=== PATIENT | female | born 1965 | race Caucasian/White ===

== ENCOUNTER 2017-01-15 03:59 | Observation (INO) | payer MEDICAID, OTHER ==
[~2017-01-15] VITALS: Ht 162.6 cm; Wt 56.2 kg
[2017-01-15] MEDS ORDERED: SODIUM CHLORIDE 0.9% 1,000 ML IV ONE (08:08)
[2017-01-15] MEDS ORDERED: ALPRAZolam 0.5 MG TAB PO ONE (08:15)
[2017-01-15] MEDS ORDERED: OLANZapine 5 MG TAB PO ONE (08:15)
[2017-01-15 08:25] LABS: Urine Bilirubin Negative (Negative); Urine Blood Negative /uL (Negative); Urine Color Yellow (Yellow); Urine Glucose Normal (Normal); Urine Mucus FEW (None Seen); Urine Nitrite Negative (Negative); Urine RBC 1 /hpf (0 - 4); Urine Squamous Epithelial Cell FEW /hpf (<5); Urine Urobilinogen Normal (Negative)
[2017-01-15 08:28] LABS: Urine Ketone 2+ (Negative)
[2017-01-15 09:17] LABS: Basophils # (auto) 0 uL; Basophils % (auto) 0.3 % (0.0-2.0); Eosinophils # (auto) 0 uL; Eosinophils % (auto) 0.1 % (0.0-7.0); Hematocrit 38.5 % (36.0-46.0); Hemoglobin 13.1 g/dL (12.2-16.2); Lymphocytes % (auto) 14.3 % (10.0-50.0); Mean Corpuscular Hemoglobin 31.4 pg (28.0-32.0); Mean Corpuscular Volume 92.3 fL (80.0-100.0); Mean Platelet Volume 7.3 fL (7.4-10.4); Monocytes # (auto) 0.3 uL; Monocytes % (auto) 4.5 % (0.0-12.0); Neutrophils # (auto) 5.9 uL; Neutrophils % (auto) 80.8 % (37.0-80.0); Platelet Count (auto) 358 10^3/uL (140-450); Red Cell Distribution Width 14.1 % (11.6-16.0); White Blood Cell 7.3 10^3/uL (4.4-10.8)
[2017-01-15 09:31] LABS: Albumin 4.1 g/dL (3.4-5.0); BUN/Creatinine Ratio 13.3; Bilirubin, Total 0.5 mg/dL (0.2-1.0); Calcium 9.2 mg/dL (8.5-10.1); Potassium 3.1 mmol/L (3.5-5.1); Total Protein 7.1 g/dL (6.4-8.2)
[2017-01-15 10:00] VITALS: BP 150/101
[2017-01-15] MEDS ORDERED: RISP4TAB53 (10:44)
[2017-01-15] MEDS ORDERED: ESCI20TA51 (10:44)
[2017-01-15] MEDS ORDERED: POTASSIUM CHL 10% (20 MEQ/15ML) ORAL SOLN PO ONE (11:45)
== END 2017-01-15 17:58 | disposition home or self-care (01) | DRG 750 ==
LOC: ER 03:59 → OVERFLOW 08:11 → ER 17:58
PROVIDERS: ADMIT Emergency Medicine; ATTEND Emergency Medicine
DX: F25.0 Schizoaffective disorder, bipolar type (principal); F30.8 Other manic episodes; E87.6 Hypokalemia; F51.05 Insomnia due to other mental disorder; F41.9 Anxiety disorder, unspecified
CPT/HCPCS: 36415; 71020; 80053; 80307; 81001; 83735; 84443; 85025; 96360; 99285; G0378

== ENCOUNTER 2017-01-24 11:49 | Emergency (ER) | payer MEDICAID ==
[~2017-01-24] VITALS: Ht 162.6 cm; Wt 56.2 kg
[~2017-01-24 11:49] MED LIST: ESCI20TA51; RISP4TAB53
[2017-01-24 12:42] LABS: Basophils # (auto) 0 uL; Basophils % (auto) 0.4 % (0.0-2.0); Eosinophils # (auto) 0 uL; Eosinophils % (auto) 0.3 % (0.0-7.0); Hematocrit 38.7 % (36.0-46.0); Hemoglobin 12.9 g/dL (12.2-16.2); Lymphocytes # (auto) 1.1 uL; Mean Corpuscular Hemoglobin 31.2 pg (28.0-32.0); Mean Corpuscular Hgb Conc. 33.4 g/dL (32.0-36.0); Mean Corpuscular Volume 93.3 fL (80.0-100.0); Mean Platelet Volume 7.2 fL (7.4-10.4); Monocytes # (auto) 0.4 uL; Monocytes % (auto) 6.5 % (0.0-12.0); Neutrophils # (auto) 4.3 uL; Neutrophils % (auto) 73.8 % (37.0-80.0); Platelet Count (auto) 356 10^3/uL (140-450); Red Cell Distribution Width 13.9 % (11.6-16.0); White Blood Cell 5.9 10^3/uL (4.4-10.8)
[2017-01-24 13:14] LABS: Albumin 3.7 g/dL (3.4-5.0); Alkaline Phosphatase 51 U/L (45-117); Anion Gap 5 (5-15); Aspartate Aminotransferase 16 U/L (15-37); BUN/Creatinine Ratio 14.5; Bilirubin, Total 0.4 mg/dL (0.2-1.0); Blood Urea Nitrogen 9 mg/dL (7-18); Calcium 8.7 mg/dL (8.5-10.1); Carbon Dioxide 27 mmol/L (21-32); Chloride 107 mmol/L (98-107); GFR African American 131 mL/min; GFR Non-African American 108 mL/min; Glucose 96 mg/dL (74-106); HEMOLYSIS - HIL 1; ICTERIA - HIL 1; LIPEMIA - HIL 1; Potassium 3.5 mmol/L (3.5-5.1); Sodium 139 mmol/L (136-145); Total Protein 6.8 g/dL (6.4-8.2)
[2017-01-24 19:45] VITALS: BP 135/98
== END 2017-01-24 21:24 | disposition home or self-care (01) ==
LOC: EDBD 11:49 → ER 11:54
DX: F31.9 Bipolar disorder, unspecified (principal); F41.9 Anxiety disorder, unspecified; F20.9 Schizophrenia, unspecified; F17.210 Nicotine dependence, cigarettes, uncomplicated; F12.10 Cannabis abuse, uncomplicated
CPT/HCPCS: 36415; 80053; 80307; 80320; 85025

== ENCOUNTER 2017-02-23 11:22 | Emergency (ER) | payer MEDICAID ==
[~2017-02-23] VITALS: Ht 162.6 cm; Wt 55.8 kg
[2017-02-23 18:25] LABS: Basophils # (auto) 0 uL; Basophils % (auto) 0.6 % (0.0-2.0); CONDITION Y; DEFINITIVE SEE PRINTOUT; Eosinophils # (auto) 0 uL; Eosinophils % (auto) 0.3 % (0.0-7.0); Hematocrit 41.6 % (36.0-46.0); Lymphocytes # (auto) 1.4 uL; Lymphocytes % (auto) 20.7 % (10.0-50.0); Mean Corpuscular Hemoglobin 32.3 pg (28.0-32.0); Mean Corpuscular Hgb Conc. 33.5 g/dL (32.0-36.0); Mean Corpuscular Volume 96.3 fL (80.0-100.0); Mean Platelet Volume 6.9 fL (7.4-10.4); Monocytes # (auto) 0.4 uL; Monocytes % (auto) 5.7 % (0.0-12.0); Neutrophils % (auto) 72.7 % (37.0-80.0); Platelet Count (auto) 382 10^3/uL (140-450); Red Cell Distribution Width 19.4 % (11.6-16.0); White Blood Cell 6.9 10^3/uL (4.4-10.8)
[2017-02-23 18:32] LABS: Albumin 3.8 g/dL (3.4-5.0); Anion Gap 8 (5-15); BUN/Creatinine Ratio 14.6; Blood Urea Nitrogen 12 mg/dL (7-18); Calcium 8.2 mg/dL (8.5-10.1); Carbon Dioxide 24 mmol/L (21-32); Chloride 106 mmol/L (98-107); GFR African American 95 mL/min; GFR Non-African American 78 mL/min; Glucose 147 mg/dL (74-106); Magnesium 1.7 mg/dL (1.6-2.6); Potassium 3.2 mmol/L (3.5-5.1); Sodium 138 mmol/L (136-145)
[2017-02-23 18:36] LABS: Alkaline Phosphatase 63 U/L (45-117); Aspartate Aminotransferase 24 U/L (15-37); Bilirubin, Total 0.8 mg/dL (0.2-1.0); Total Protein 7.4 g/dL (6.4-8.2)
[2017-02-23 22:36] LABS: Urine Bilirubin Negative (Negative); Urine Blood Negative /uL (Negative); Urine Color Yellow (Yellow); Urine Glucose Normal (Normal); Urine Ketone Negative (Negative); Urine Nitrite Negative (Negative); Urine RBC <1 /hpf (0 - 4); Urine Squamous Epithelial Cell FEW /hpf (<5); Urine Urobilinogen Normal (Negative)
[2017-02-24] MEDS ORDERED: ALPRAZolam 0.5 MG TAB PO ONE (00:30)
[2017-02-24] MEDS ORDERED: POTASSIUM CHL 20 Meq TABLET PO ONE (00:30)
[2017-02-24 00:39] VITALS: BP 142/62
== END 2017-02-24 00:40 | disposition home or self-care (01) ==
LOC: ER 11:23
DX: J02.9 Acute pharyngitis, unspecified (principal); E87.6 Hypokalemia; F19.10 Other psychoactive substance abuse, uncomplicated; R30.0 Dysuria; R53.1 Weakness; F17.210 Nicotine dependence, cigarettes, uncomplicated; F12.10 Cannabis abuse, uncomplicated
CPT/HCPCS: 36415; 71020; 80053; 80307; 81001; 83735; 84484; 85025; 93005

== ENCOUNTER 2017-04-26 20:55 | Emergency (ER) | payer MEDICAID ==
[~2017-04-26] VITALS: Ht 162.6 cm; Wt 56.2 kg
[2017-04-26 21:00] VITALS: BP 137/82
[2017-04-27] MEDS ORDERED: IBUPROFEN 600 MG TAB PO ONE (00:45)
[2017-04-27] MEDS ORDERED: HYDROcodone-ACET 5/325MG TAB PO ONE (01:00)
== END 2017-04-27 01:31 | disposition home or self-care (01) ==
LOC: ER 20:55
DX: S82.64XA Nondisplaced fracture of lateral malleolus of right fibula, initial encounter for closed fracture (principal); F12.10 Cannabis abuse, uncomplicated; F17.210 Nicotine dependence, cigarettes, uncomplicated; W01.0XXA Fall on same level from slipping, tripping and stumbling without subsequent striking against object, initial encounter; Y93.89 Activity, other specified; Y99.8 Other external cause status; Y92.89 Other specified places as the place of occurrence of the external cause
CPT/HCPCS: 29515; 73600